=== PATIENT | male | born 1975 | race Two or more races ===

== ENCOUNTER 2021-03-07 16:29 | Emergency (ER) | payer MEDICAID ==
[~2021-03-07] VITALS: Ht 175.3 cm; Wt 83.9 kg
[2021-03-07 17:00] VITALS: BP 138/86
== END 2021-03-07 18:25 | disposition left against medical advice (07) ==
LOC: ER 16:29
DX: M54.5 Low back pain (principal); Z53.21 Procedure and treatment not carried out due to patient leaving prior to being seen by health care provider; V43.92XA Unspecified car occupant injured in collision with other type car in traffic accident, initial encounter; Y93.89 Activity, other specified; Y92.410 Unspecified street and highway as the place of occurrence of the external cause; Y99.8 Other external cause status